=== PATIENT | male | born 1960 | race Caucasian/White ===

== ENCOUNTER 2019-12-09 12:45 | Inpatient (IN) | payer MEDICAID, OTHER ==
[~2019-12-09] VITALS: Ht 177.8 cm; Wt 83.9 kg
[2019-12-09] MEDS ORDERED: KETOROLAC TROMETH 30 MG/ML 1ML VIAL IV ONE (13:00)
[2019-12-09 13:30] LABS: Basophils # (auto) 0.1 10 ^3/uL (0-0.2); Basophils % (auto) 1.2 % (0.0-2.0); Eosinophils # (auto) 0 10 ^3/uL (0-0.8); Eosinophils % (auto) 0.3 % (0.0-7.0); Hematocrit 40.4 % (41.0-53.0); Hemoglobin 13.7 g/dL (13.5-17.5); Lymphocytes # (auto) 2.1 10 ^3/uL (0.4-5.4); Lymphocytes % (auto) 17.4 % (10.0-50.0); Mean Corpuscular Hemoglobin 30.2 pg (28.0-32.0); Mean Corpuscular Hgb Conc. 33.9 g/dL (32.0-36.0); Mean Corpuscular Volume 89.1 fL (80.0-100.0); Monocytes # (auto) 1.1 10 ^3/uL (0-1.3); Monocytes % (auto) 9.2 % (0.0-12.0); Neutrophils # (auto) 8.6 10 ^3/uL (1.6-8.6); Neutrophils % (auto) 71.9 % (37.0-80.0); Nucleated Red Blood Cells % 0.1 %; Platelet Count (auto) 217 10^3/uL (140-450); Red Blood Cells 4.54 10^6/uL (4.5-5.90); Red Cell Distribution Width 14.3 % (11.8-14.3); White Blood Cell 11.9 10^3/uL (4.4-10.8)
[2019-12-09 13:46] LABS: Alanine Aminotransferase 24 U/L (16-61); Albumin 3.3 g/dL (3.4-5.0); Anion Gap 5 (5-15); Aspartate Aminotransferase 13 U/L (15-37); BUN/Creatinine Ratio 22.9; Blood Urea Nitrogen 19 mg/dL (7-18); Calcium 8.5 mg/dL (8.5-10.1); Carbon Dioxide 24 mmol/L (21-32); Chloride 109 mmol/L (98-107); GFR African American 121 mL/min; GFR Non-African American 100 mL/min; Glucose 84 mg/dL (74-106); Sodium 138 mmol/L (136-145)
[2019-12-09 13:50] LABS: Alkaline Phosphatase 78 U/L (45-117); Bilirubin, Total 0.3 mg/dL (0.2-1.0); Total Protein 6.7 g/dL (6.4-8.2)
[2019-12-09] MEDS ORDERED: ONDANSETRON HCL 4 MG/2 ML VIAL IV ONE (14:45)
[2019-12-09] MEDS ORDERED: MORPHINE SULFATE 4 MG/ML SYR/VIAL IV ONE (14:45)
[2019-12-09] MEDS ORDERED: LACTULOSE 20Gm/30ML SOLN PO PRN (16:00)
[2019-12-09] MEDS ORDERED: PROMETHAZINE HCL 25 MG/ML 1ML IV PRN (16:00)
[2019-12-09] MEDS ORDERED: NITROGLYCERIN 0.4 MG SL TAB SL PRN (16:00)
[2019-12-09] MEDS ORDERED: MORPHINE SULF INJ 2 MG/ML SYRINGE 1ML IV PRN (16:00)
[2019-12-09] MEDS ORDERED: ACETAMINOPHEN 500 MG TAB PO PRN (16:00)
[2019-12-09] MEDS ORDERED: traMADol HCL 50 MG TAB PO PRN (16:00)
[2019-12-09] MEDS ORDERED: TEMAZEPAM 15 MG CAP PO PRN (16:00)
[2019-12-09] MEDS ORDERED: CITA-36 PO (17:45)
[2019-12-09 17:50] LABS: CRP High Sensitivity 0.56 mg/dL (< 0.3)
[2019-12-09] MEDS: SODIUM CHLORIDE 0.9% 1,000 ML IV SCH (17:58)
--- NOTE | 2019-12-09 18:10 | NUR ---
THIS RN NOTIFIED THE PRIMARY RN, PATRICK, THAT THE PATIENT NEEDS A MRSA SWAB. RNPATRICK, AWARE AND VERBALIZED UNDERSTANDING.
[2019-12-09] MEDS ORDERED: HYDROcodone-ACET 10/325MG TAB PO ONE (18:15)
--- NOTE | 2019-12-09 18:35 | NUR ---
MRSA SWAB SENT TO LAB.
[2019-12-09] MEDS: MORPHINE SULF INJ 2 MG/ML SYRINGE 1ML IV PRN (20:28)
[2019-12-09 22:00] VITALS: BP 121/76
[2019-12-09] MEDS: ATORVASTATIN 20 MG TAB PO SCH (22:09)
[2019-12-09] MEDS: METOPROLOL TARTRATE 25 MG TAB PO SCH (22:10)
[2019-12-10 05:00] VITALS: BP 115/76
[2019-12-10] MEDS: SODIUM CHLORIDE 0.9% 1,000 ML IV SCH (05:41)
--- NOTE | 2019-12-10 06:53 | NUR ---
Urine sent to lab
[2019-12-10 07:20] LABS: Basophils # (auto) 0.1 10 ^3/uL (0-0.2); Eosinophils # (auto) 0.1 10 ^3/uL (0-0.8); Eosinophils % (auto) 1.2 % (0.0-7.0); Hematocrit 40.5 % (41.0-53.0); Hemoglobin 13.9 g/dL (13.5-17.5); Lymphocytes # (auto) 1.9 10 ^3/uL (0.4-5.4); Lymphocytes % (auto) 26.7 % (10.0-50.0); Mean Corpuscular Hemoglobin 30.7 pg (28.0-32.0); Mean Corpuscular Hgb Conc. 34.2 g/dL (32.0-36.0); Mean Corpuscular Volume 89.5 fL (80.0-100.0); Monocytes # (auto) 0.7 10 ^3/uL (0-1.3); Monocytes % (auto) 9.6 % (0.0-12.0); Neutrophils # (auto) 4.3 10 ^3/uL (1.6-8.6); Neutrophils % (auto) 61.5 % (37.0-80.0); Platelet Count (auto) 205 10^3/uL (140-450); Red Blood Cells 4.53 10^6/uL (4.5-5.90); Red Cell Distribution Width 14.6 % (11.8-14.3)
--- NOTE | 2019-12-10 07:30 | NUR ---
Opening Shift Note Assumed care of patient, awake and alert. No S/S of distress/SOB, reports mild chest and foot pain, dressing remain clean and dry. Instructed on POC and to call for assist PRN, will continue to monitor for changes Q1hr and PRN.
[2019-12-10 07:50] LABS: Alcohol, Urine < 3.0 mg/dL (0-10); Amphetamine Screen, Urine NEGATIVE (NEGATIVE); Barbiturate Scree,Urine NEGATIVE (NEGATIVE); Benzodiazephine Screen, Urine POSITIVE (NEGATIVE); Cannabinoid Screen, Urine NEGATIVE (NEGATIVE); Cocaine Screen, Urine NEGATIVE (NEGATIVE); Opiate Scree,Urine POSITIVE (NEGATIVE); Phencyclidine Screen, Urine NEGATIVE (NEGATIVE)
[2019-12-10 07:56] LABS: Cholesterol 173 mg/dL (< 200); HDL Cholesterol 54 mg/dL (40-59); LDL Cholesterol 109 mg/dL (< 100); Triglycerides 83 mg/dL (< 150)
[2019-12-10] MEDS: HYDROcodone-ACET 10/325MG TAB PO PRN ×3 (07:59→20:00)
[2019-12-10] MEDS ORDERED: ADENOSINE 73 MG in GIVE UN-DILUTED 0 ML IV STA (08:50)
[2019-12-10 09:00] VITALS: BP 92/64
[2019-12-10] MEDS: ASPirin 81 mg TAB PO SCH (13:11)
[2019-12-10] MEDS: METOPROLOL TARTRATE 25 MG TAB PO SCH ×2 (13:12→21:34)
[2019-12-10] MEDS: ENOXAPARIN SOD 40 MG/0.4 ML SYRINGE SC SCH (13:13)
[2019-12-10] MEDS: NITROGLYCERIN 0.2MG/HR TOPICAL PATCH TD SCH (13:14)
--- NOTE | 2019-12-10 16:30 | NUR ---
ASSUMED CARE ASSUMED CARE OF PATIENT FROM PRAVEEN NGUYEN. PATIENT ASLEEP ON RIGHT SIDE, EVEN UNLABORED RESPIRATIONS. NO S/S OF DISTRESS, SOB, PAIN. WILL CONTINUE TO MONITOR
[2019-12-10 16:45] VITALS: BP 116/81
--- NOTE | 2019-12-10 19:15 | NUR ---
Opening Shift Note Assumed care of patient, eyes closed, respirations even and unlabored, appears asleep. No S/S of distress/SOB or pain. Bed in lowest locked position, side rails up x2, call light within reach. Dressing to right foot noted to be clean, dry, and intact. Insructed on POC and to call for assist PRN, will continue to monitor for changes Q1hr and PRN.
[2019-12-10] MEDS: ATORVASTATIN 20 MG TAB PO SCH (21:33)
[2019-12-10 22:00] VITALS: BP 127/79
[2019-12-11] MEDS: HYDROcodone-ACET 10/325MG TAB PO PRN ×4 (02:35→21:40)
[2019-12-11 05:00] VITALS: BP 115/71
[2019-12-11 06:29] LABS: Basophils # (auto) 0.1 10 ^3/uL (0-0.2); Basophils % (auto) 1.4 % (0.0-2.0); Eosinophils # (auto) 0.1 10 ^3/uL (0-0.8); Hematocrit 45.1 % (41.0-53.0); Hemoglobin 15.4 g/dL (13.5-17.5); Lymphocytes # (auto) 2.2 10 ^3/uL (0.4-5.4); Lymphocytes % (auto) 36.5 % (10.0-50.0); Mean Corpuscular Hemoglobin 31.1 pg (28.0-32.0); Mean Corpuscular Hgb Conc. 34.1 g/dL (32.0-36.0); Mean Corpuscular Volume 91.1 fL (80.0-100.0); Monocytes # (auto) 0.7 10 ^3/uL (0-1.3); Monocytes % (auto) 11.9 % (0.0-12.0); Neutrophils # (auto) 2.9 10 ^3/uL (1.6-8.6); Neutrophils % (auto) 48.2 % (37.0-80.0); Platelet Count (auto) 214 10^3/uL (140-450); Red Blood Cells 4.95 10^6/uL (4.5-5.90); Red Cell Distribution Width 14.5 % (11.8-14.3)
[2019-12-11 06:55] LABS: Potassium 4.4 mmol/L (3.5-5.1)
[2019-12-11 07:00] LABS: BUN/Creatinine Ratio 28.8; Calcium 8.9 mg/dL (8.5-10.1)
--- NOTE | 2019-12-11 07:37 | NUR ---
Closing Note Patient lying in bed, eyes closed, respirations even and unlabored, appears asleep. Patient awakens to name and touch. No s/s of distress. Care endorsed to dayshift RN.
--- NOTE | 2019-12-11 07:38 | NUR ---
Opening Shift Note: Assumed care of patient. Patient asleep at this time. No S/S of distress/SOB or pain. Respirations even and labored. Bed in lowest locked position, side rails up x 2, call light within reach. Patient will be instructed on POC and to call for assistance PRN, will continue to monitor for changes Q1hr and PRN.
[2019-12-11 09:00] VITALS: BP 111/81
[2019-12-11] MEDS: ENOXAPARIN SOD 40 MG/0.4 ML SYRINGE SC SCH (09:37)
[2019-12-11] MEDS: METOPROLOL TARTRATE 25 MG TAB PO SCH ×2 (09:39→21:32)
[2019-12-11] MEDS: ASPirin 81 mg TAB PO SCH (09:39)
[2019-12-11] MEDS: NITROGLYCERIN 0.2MG/HR TOPICAL PATCH TD SCH (09:39)
--- NOTE | 2019-12-11 13:45 | NUR ---
PAGED DR. ERIC REGARDING CLEARANCE FOR DISCHARGE. AWAITING CALL BACK.
[2019-12-11 15:07] VITALS: BP 101/64
--- NOTE | 2019-12-11 15:20 | NUR ---
PAGED DR. LEY REGARDING PENDING STRESS TEST RESULTS AWAITING CALL BACK
--- NOTE | 2019-12-11 15:39 | NUR ---
PAGED DR. ERIC REGARDING CLEARANCE FOR DISCHARGE. AWAITING CALL BACK.
--- NOTE | 2019-12-11 15:46 | NUR ---
PAGED DR. LEY REGARDING PENDING STRESS TEST RESULTS. AWAITING CALL BACK.
--- NOTE | 2019-12-11 15:59 | NUR ---
SPOKE WITH DR. LEY. PER DR. LEY "IF NO CLEARANCE FROM DR. ERIC, HOLD DISCHARGE UNTIL TOMORROW."
[2019-12-11 17:00] VITALS: BP 117/71
--- NOTE | 2019-12-11 17:59 | NUR ---
PATIENT AND PATIENTS DAUGHTER UPDATED ON POC.
--- NOTE | 2019-12-11 18:45 | NUR ---
CLOSING NOTE: PATIENT RESTING IN BED. NO S/S OF DISTRESS AT THIS TIME. CARE ENDORSED.
--- NOTE | 2019-12-11 19:26 | NUR ---
Spoke Dr. Khanna, per Dr. Khanna he is not on the case but reviewed the stress test and recommends keeping the patient until tomorrow. Will page Dr. Hi to notify and continue care of patient.
--- NOTE | 2019-12-11 19:30 | NUR ---
Opening Shift Note Assumed care of patient, eyes closed, respirations even and unlabored, appears asleep. No S/S of distress/SOB or pain. Bed in lowest locked position, side rails up x2, call light within reach. Dressing to right foot noted to be clean, dry, and intact. Instructed on POC and to call for assist PRN, will continue to monitor for changes Q1hr and PRN. Addendum: 12/11/19 at 5 by CRYSTAL OH RN RN CORRECTION: Time 19:15
--- NOTE | 2019-12-11 19:48 | NUR ---
educational coordinator hospitalist Dr. Abby beyer at this time, awaiting call back. Addendum: 12/12/19 at 0509 by CRYSTAL OH RN RN ADDITION: Per PBX, Dr. Hi not available at time of original note, had left for the day.
--- NOTE | 2019-12-11 19:49 | NUR ---
Received phone call from Dr. Mora, per Dr. Mora ok for "patient to be discharged in the morning." Order read back and verified, will implement and continue to monitor.
[2019-12-11] MEDS: ATORVASTATIN 20 MG TAB PO SCH (21:32)
[2019-12-11 22:00] VITALS: BP 112/66
[2019-12-12 05:00] VITALS: BP 106/73
[2019-12-12] MEDS: HYDROcodone-ACET 10/325MG TAB PO PRN ×3 (05:39→22:10)
--- NOTE | 2019-12-12 06:42 | NUR ---
Closing Note Patient lying in bed, eyes closed, respirations even and unlabored, appears asleep. Patient awakens to name and touch. No s/s of distress. Care endorsed to darcy MORTON. Addendum: 12/12/19 at 0644 by CRYSTAL OH RN RN CORRECTION:Will endorse care to darcy MORTON.
--- NOTE | 2019-12-12 08:20 | NUR ---
Opening Shift Note Assumed care of patient, awake and alert and oriented x4. No S/S of distress/SOB or pain. Instructed on POC and to call for assist PRN, will continue to monitor for changes Q1hr and PRN.
[2019-12-12] MEDS: METOPROLOL TARTRATE 25 MG TAB PO SCH ×2 (09:11→21:52)
[2019-12-12] MEDS: ASPirin 81 mg TAB PO SCH (09:11)
[2019-12-12] MEDS: ENOXAPARIN SOD 40 MG/0.4 ML SYRINGE SC SCH (09:13)
--- NOTE | 2019-12-12 10:15 | NUR ---
Discussed plan of care with Dr. Hi; orders received.
[2019-12-12 12:46] VITALS: BP 113/73
[2019-12-12 16:42] VITALS: BP 136/72
[2019-12-12] MEDS: MORPHINE SULF INJ 2 MG/ML SYRINGE 1ML IV PRN (17:16)
--- NOTE | 2019-12-12 17:20 | NUR ---
This RN paged hospitalist for pt.'s home meds. Hospitalist called back; new orders received read back and verified.
[2019-12-12] MEDS ORDERED: DOCUSATE SOD 100 MG CAP PO ONE (17:45)
[2019-12-12] MEDS: LACTULOSE 20Gm/30ML SOLN PO SCH ×3 (17:59→22:06)
--- NOTE | 2019-12-12 18:54 | NUR ---
CLOSING SHIFT NOTE PT. RESTING IN BED; NO SIGNS OR SYMPTOMS OF DISTRESS, CARE ENDORSED.
--- NOTE | 2019-12-12 19:05 | NUR ---
Opening Shift Note Assumed care of patient, awake and alert, speaking on phone to family. No S/S of distress/SOB or pain. Bed in lowest locked position, side rails up x2, call light within reach. Dressing to right foot noted to be clean, dry, and intact. Instructed on POC and to call for assist PRN, will continue to monitor for changes Q1hr and PRN.
--- NOTE | 2019-12-12 19:07 | NUR ---
Patient does not want to sign consents at this time, states he has "questions for the doctor". Consents placed in hard patient's hard chart.
[2019-12-12] MEDS: MUPIROCIN 2% OINT 15gm or 22gm EACHNOSTRI SCH (21:50)
[2019-12-12] MEDS: DOCUSATE SOD 100 MG CAP PO SCH (21:51)
[2019-12-12] MEDS: ATORVASTATIN 20 MG TAB PO SCH (21:52)
[2019-12-12 22:00] VITALS: BP 112/78
--- NOTE | 2019-12-13 | NUR ---
COVID swab collected from patient per pre procedure protocol. Patient tolerated well. Specimen double bagged in lab bags and walked to lab by Yoselin MORTON. Will continue care.
[2019-12-13 05:00] VITALS: BP_SYST 108; BP_SYST 117; BP_DIAS 66; BP_DIAS 72
[2019-12-13] MEDS: LACTULOSE 20Gm/30ML SOLN PO SCH ×5 (05:50→23:57)
[2019-12-13] MEDS: HYDROcodone-ACET 10/325MG TAB PO PRN ×3 (05:51→21:53)
[2019-12-13 06:34] LABS: INR 0.94 (0.9-1.15)
[2019-12-13 06:42] LABS: BUN/Creatinine Ratio 24.1; Calcium 8.6 mg/dL (8.5-10.1); Magnesium 2.6 mg/dL (1.6-2.6); Potassium 4.5 mmol/L (3.5-5.1)
--- NOTE | 2019-12-13 07:20 | NUR ---
Opening Shift Note Patient lying in bed, eyes closed, respirations even and unlabored, appears asleep. Patient awakens to name and touch. No s/s of distress. This RN will continue to monitor Q1Hr.
[2019-12-13] MEDS: DOCUSATE SOD 100 MG CAP PO SCH ×2 (09:23→21:53)
[2019-12-13] MEDS: ASPirin 81 mg TAB PO SCH (09:23)
[2019-12-13] MEDS: METOPROLOL TARTRATE 25 MG TAB PO SCH ×2 (09:23→21:54)
[2019-12-13] MEDS: MUPIROCIN 2% OINT 15gm or 22gm EACHNOSTRI SCH ×2 (09:24→21:54)
[2019-12-13] MEDS: CITALOPRAM HYDROBR 20 MG TAB PO SCH (09:24)
[2019-12-13 09:55] VITALS: BP 119/80
[2019-12-13] MEDS: ENOXAPARIN SOD 40 MG/0.4 ML SYRINGE SC SCH (10:00)
--- NOTE | 2019-12-13 10:40 | NUR ---
RECEIVED CALL FROM [facility]. [facility] REQUESTING PT. TO BE TAKEN DOWN. THIS NURSE INFORMED [facility] NO ORDERS FOR PROCEDURE AT THIS TIME.
--- NOTE | 2019-12-13 11:06 | NUR ---
Nutrition Assessment Est energy needs [id number] kcal (20-25 kcal/kg BW 83.8kg) Est protein needs 67-84g (0.8-1g/kg BW 83.8kg) WIll reassess prn. Addendum: 12/13/19 at [address] Amended: Links added.
--- NOTE | 2019-12-13 11:15 | NUR ---
THIS RN TOOK PT. DOWN TO [facility]. NO DISTRESS NOTED.
[2019-12-13 12:00] VITALS: BP 115/81
[2019-12-13] MEDS ORDERED: LIDOCAINE 2%HCL (LOCAL ANESTH.) INJ 20ML MDV ONE (12:37)
[2019-12-13] MEDS ORDERED: IODIXANOL 320MG/ML 100ML BTL IV ONE (12:37)
[2019-12-13] MEDS ORDERED: SODIUM CHL 0.9% 0 ML ONE (12:48)
[2019-12-13] MEDS ORDERED: MIDAZOLAM HCL 1MG/1ML-2 ML VIAL ONE (12:48)
[2019-12-13] MEDS ORDERED: VERAPAMIL 2.5MG/ML INJ 2ML VIAL IV ONE (12:48)
[2019-12-13] MEDS ORDERED: ANGIOMAX 250 MG VIAL IV ONE (12:48)
[2019-12-13] MEDS ORDERED: fentaNYL CITRATE 100 MCG/2 ML VL ONE (12:49)
[2019-12-13] MEDS ORDERED: HEPARIN SODIUM (PORCINE) 5000 UNITS/ML 1ML VIAL ONE (12:49)
--- NOTE | 2019-12-13 14:00 | NUR ---
Pt. returned from lab coordinator. No signs or symptoms or distress noted. Will continue to monitor pt.
--- NOTE | 2019-12-13 15:13 | NUR ---
2 ML REMOVED FROM VASC-BAND. NO BLEEDING NOTED. WILL CONTINUE TO MONITOR.
[2019-12-13 16:44] VITALS: BP 108/76
--- NOTE | 2019-12-13 18:48 | NUR ---
End of shift This RN took Vasc Band off, Pt. resting comfortably no s/s of distress.
--- NOTE | 2019-12-13 19:40 | NUR ---
OPENING NOTE Received report from day shift RN. Patient is A&O X's 4 with no s/s of distress and reports some pain to right foot that is throbbing and said he wants medication for it a little bit later. Patient's slab lifting engineer site to right wrist has no bleeding noted. Applied a gauze to the site. Educated patient to refrain from excessive pressure to that wrist/hand and avoid lifting. Patient verbalized understanding. Educated patient to inform me of any changes to sensation to that hand/fingers or any bleeding noted. Patient has walker at bedside. Bed is in lowest/locked position with side rails up X's 2 and call light is within reach of patient. Will continue care.
[2019-12-13] MEDS: ATORVASTATIN 20 MG TAB PO SCH (21:53)
[2019-12-13 22:00] VITALS: BP 111/69
[2019-12-14] MEDS: HYDROcodone-ACET 10/325MG TAB PO PRN (02:02)
[2019-12-14 05:00] VITALS: BP 107/73
[2019-12-14] MEDS: LACTULOSE 20Gm/30ML SOLN PO SCH ×2 (05:44→11:13)
[2019-12-14 09:00] VITALS: BP 113/69
[2019-12-14] MEDS: ENOXAPARIN SOD 40 MG/0.4 ML SYRINGE SC SCH (09:48)
[2019-12-14] MEDS: ASPirin 81 mg TAB PO SCH (09:48)
[2019-12-14] MEDS: DOCUSATE SOD 100 MG CAP PO SCH (09:48)
[2019-12-14] MEDS: CITALOPRAM HYDROBR 20 MG TAB PO SCH (09:48)
[2019-12-14] MEDS: MUPIROCIN 2% OINT 15gm or 22gm EACHNOSTRI SCH (09:48)
[2019-12-14] MEDS: METOPROLOL TARTRATE 25 MG TAB PO SCH (09:49)
[2019-12-14] MEDS ORDERED: ATOR20TA50 PO (09:57)
[2019-12-14] MEDS ORDERED: ASPI81CH43 PO (09:57)
[2019-12-14 11:30] VITALS: BP 124/78
--- NOTE | 2019-12-14 12:10 | NUR ---
Discharge instructions given as ordered. Encourage to follow up with PMD (Follow up with Dr. Carlos Eduardo Dalal # [phone] Address : [address], [address] , , [place], [address]) as instructed. All questions and concerns addressed. Patient verbalized understanding. Medication reconciliation form completed and copy given to patient. IV removed with catheter intact, pressure dressing applied. Telemetry unit returned to ICU. Patient taken to vehicle via wheelchair with all personal belongings, accompanied by staff and family member. No distress noted at time of departure.
== END 2019-12-14 12:10 | disposition home or self-care (01) | DRG 191 ==
LOC: EDBD 12:45 → ER 12:45 → TELE-WESTW 12:46
PROVIDERS: ADMIT Internal Medicine; ATTEND Internal Medicine Pulmonary Disease
PROC: 4A023N7 Measurement of Cardiac Sampling and Pressure, Left Heart, Percutaneous Approach (ICD-10-PCS; principal; 2019-12-13)
PROC: B2151ZZ Fluoroscopy of Left Heart using Low Osmolar Contrast (ICD-10-PCS; 2019-12-13)
PROC: B2111ZZ Fluoroscopy of Multiple Coronary Arteries using Low Osmolar Contrast (ICD-10-PCS; 2019-12-13)
DX: I25.10 Atherosclerotic heart disease of native coronary artery without angina pectoris (principal); R65.10 Systemic inflammatory response syndrome (SIRS) of non-infectious origin without acute organ dysfunction; E66.3 Overweight; J98.11 Atelectasis; Z20.828 Contact with and (suspected) exposure to other viral communicable diseases; Z86.73 Personal history of transient ischemic attack (TIA), and cerebral infarction without residual deficits; Z83.3 Family history of diabetes mellitus; Z82.49 Family history of ischemic heart disease and other diseases of the circulatory system; Z80.1 Family history of malignant neoplasm of trachea, bronchus and lung; Z87.891 Personal history of nicotine dependence; Z98.1 Arthrodesis status; R94.39 Abnormal result of other cardiovascular function study; B95.62 Methicillin resistant Staphylococcus aureus infection as the cause of diseases classified elsewhere; F10.99 Alcohol use, unspecified with unspecified alcohol-induced disorder; E78.5 Hyperlipidemia, unspecified
CPT/HCPCS: 36415; 71045; 71046; 78452; 80048; 80053; 80061; 80307; 83735; 84484; 85025; 85379; 85610; 85652; 86141; 87081; 93005; 93017; 93306; 96374; 96375; 99152; G0378; J0153; J1885; J2250; J2405; Q9967